=== PATIENT | male | born 1945 | race Caucasian/White ===

== ENCOUNTER → 2019-01-04 | Day surgery (SDC) | payer MEDICARE, BC ==
[~2019-01-04] MED LIST: BUPIVACAINE HCL 0.5 % INJ/PF 30 ML SDV ONE; LIDOCAINE 2% INJ (20 MG/ML) 20 ML MDV ONE; METHYLPREDNISOLONE ACETATE INJ 40 MG/1 ML ML ONE
--- NOTE | 2019-01-04 15:50 | Operative Report ---
KNEE RADIOFREQUENCY PROCEDURE: 1. Superolateral genicular branch from the vastus lateralis 2. Superomedial genicular branch from the vastus medialis 3. Inferomedial genicular branch from the saphenous nerve 4. Medial retinacular branch from the vastus intermedius DATE OF PROCEDURE: January 04, 2019 ANESTHESIA: Local COMPLICATIONS: None PROCEDURE IN DETAIL: Hx/PE/meds/allergies/applicable labs reviewed. No changes and no contraindications were found. Full description of the procedure was provided including benefits as well as possible complications including transie nt increased pain, stomach irritation, mood alteration, transient weakness or parasthesias as well as more serious nerve injury, bleeding, infection or allergic reaction. Informed consent was obtained and documented. The patient was brought to the procedure room and placed on the exam table in a comfortable supine position. The place for needle placement was obtained by manual palpation with radiographic confirmation. The sterile field was prepared by chloroprep and sterile drapes. Local anesthesia superficial and deep was provided by local infiltration of 1% lidocaine. A 17g 75 mm radiofrequency introducer needle with a 4 mm active tip was placed overlying the left knee joint and using fluoroscopic guidance the needle was advanced to a bony endpoint on the superiolateral portion of the femoral condyle of the left knee. A second needle was advanced to a bony endpoint on the superiomedial portion of the femoral condyle. A third needle was then placed over the inferiomedial portion of the tibial condyle until a bony endpoint was met. Optional fourth needle placed midline of the femur approximately 2cm superior to the upper border of the patella. Attempted aspiration yielded no bl ood. Lateral x-ray views showed all the needles at 50% depth of the femur and tibia. Motor stimulation was tested at 2.0 volts with no leg movement. Images were saved in AP and lateral. A mixture consisting of 2% lidocaine was slowly injected. Then a radiofrequency ablation of each of the geniculate nerves were done at 80 degrees Celsius for 2 minutes and 30 seconds each. The electrodes were withdrawn and each site was infiltrated with a mixture of 0.25% bupivacaine with 40 mg of Depo-Medrol. Then needles were withdrawn. The patient tolerated the procedure well. After observation the patient was discharged with instructions and follow up. They were also provided contact information to call regarding any concerning symptoms or questions. IMPRESSION: 1. Successful geniculate knee radiofrequency ablation was performed.. 2. RTC in 1 week(s).
== END ==
LOC: RAD 13:10 → EDSTATUS 14:30
PROVIDERS: ATTEND Pain Medicine Interventional Pain Medicine
DX: M25.562 Pain in left knee (principal)
CPT/HCPCS: 64640 ×3; J3490 ×2; J1030

== ENCOUNTER → 2019-03-02 | Day surgery (SDC) | payer MEDICARE, BC ==
[~2019-03-02] MED LIST changes: +KETOROLAC TROMETHAMINE INJ/PF 30 MG/1 ML SDV IM PRN
== END ==
LOC: RAD 11:15
PROVIDERS: ATTEND Pain Medicine Interventional Pain Medicine
DX: M25.561 Pain in right knee (principal)
CPT/HCPCS: 64640 ×3; J3490 ×2; J1030; J1885